=== PATIENT | female | born 1990 | race Two or more races ===

== ENCOUNTER 2025-01-23 16:10 | Emergency (ER) | payer MEDICAID, SELFPAY ==
[2025-01-23 17:17] VITALS: BP 134/87; PULSE 82; RESP 28; TEMP 36.6; O2SAT 100
--- NOTE | 2025-01-23 18:08 | XR_ITS ---
Examination: CT abdomen and pelvis without contrast. Coronal 3-D reconstructions. Sagittal 2-D reconstructions. Date and time of exam:January 23, 2025 1957 hrs. Indications: Onset left flank pain left-sided abdominal pain beginning one week ago. CTDI: vol (mGy): 7.74 DLP: (mGycm): 556 Technique: Axial images of the abdomen have been obtained, 3 mm slice thickness Intravenous contrast material has not been administered. Low dose protocols were performed. One or more of the following dose reduction techniques were used; automated exposure control, adjustment of the mA and/or KV according to patient size, use of iterative reconstruction technique. Findings: No focal liver or splenic lesions. No gallstones. No pancreatic or adrenal mass. 10 mm, 4 mm left renal calculi Mild to moderate left hydronephrosis secondary to 5 x 14 mm left ureteral calculus, proximal No bowel obstruction Normal appendix No diverticulitis No pelvic mass, 12 mm right follicular cyst No bladder calculi Impression: Mild to moderate left hydronephrosis secondary to proximal 5 x 14 mm left ureteral calculus
[2025-01-23] MEDS: ONDANSETRON ODT 4 MG TABRAP PO (18:22)
[2025-01-23] MEDS: KETOROLAC INJ 60 MG/2 ML VIAL 30 MG IM (18:22)
[2025-01-23 18:45] LABS: Basophils # (Auto) 0.0 Thou/mm3 (0.0-0.2); Basophils % (Auto) 0 % (0-2.5); Eosinophils # (Auto) 0.0 Thou/mm3 (0.0-0.5); Eosinophils % (Auto) 0 % (0-10); Hematocrit 34.0 % (36.0-46.0); Hemoglobin 11.4 g/dL (12.0-16.0); Immature Granulocytes Auto 0.05 Thou/mm3 (0.00-0.00); Lymphocytes # (Auto) 0.9 Thou/mm3 (1.0-4.8); Lymphocytes % (Auto) 5 % (10-50); Mean Corpuscular HGB Conc 33.5 g/dl (31.0-37.0); Mean Corpuscular Hemoglobin 27.7 pg (25.0-35.0); Mean Corpuscular Volume 83 fL (80-100); Monocytes # (Auto) 1.0 Thou/mm3 (0.0-0.8); Monocytes % (Auto) 6 % (0-12); Neutrophils # (Auto) 14.2 Thou/mm3 (1.8-7.7); Neutrophils % (Auto) 88 % (37-80); Nucleated Red Blood Cell # 0.00 Thou/mm3 (0.00-0.00); Nucleated Red Blood Cell % 0 /100 WBC (0); Platelet Count 321 Thou/mm3 (140-440); RDW Standard Deviation 44.0 fL (36.4-46.3); Red Blood Count 4.11 Miln/mm3 (4.00-5.20); White Blood Count 16.2 Thou/mm3 (3.6-11.0)
[2025-01-23 19:00] LABS: Alanine Aminotransferase 12 U/L (10-49); Albumin, Serum 4.7 gm/dL (3.5-5.0); Albumin/Globulin Ratio 1.9 (1.2-2.2); Alkaline Phosphatase 68 U/L (46-116); Amylase 54 U/L (30-118); Anion Gap 10 (7-16); Aspartate Amino Transferase 24 U/L (0-34); BUN/Creatinine Ratio 16 Ratio (12-20); Bilirubin,Total 1.1 mg/dL (0.3-1.2); Blood Urea Nitrogen 14 mg/dL (9-23); Calcium 9.6 mg/dL (8.3-10.6); Calcium (Corrected) 9.6 mg/dL (8.5-10.1); Carbon Dioxide 25.0 mMol/L (20.0-31.0); Chloride 102 mMol/L (98-107); Creatinine (Component) 0.9 mg/dL (0.6-1.3); Estimated Creatinine Clearance 99.9 mL/min (>60); Globulin 2.5 gm/dL (2.3-3.5); Glucose 136 mg/dL (74-106); Osmolality,Calculated 276 (275-295); Potassium 4.1 mMol/L (3.4-5.1); Sodium 137 mMol/L (136-145); Total Protein 7.2 gm/dL (5.7-8.2); eGFR > 60 See Note
[2025-01-23 19:30] LABS: Collection Type, Urine Voided
[2025-01-23 19:41] LABS: HCG Qualitative,Urine Negative
--- NOTE | 2025-01-23 19:50 | EDNOTE_ITS ---
ED Abdominal Pain RME/HPI General Chief Complaint: Abdominal Pain Stated complaint: ABD/BACK PAIN Time seen by provider: 01/23/25 17:58 Arrival date/time: 01/23/25 16:10 RME / HPI RME / HPI narrative: 34-year-old healthy female, Last menstrual period about a week ago, presents to the ER complaining of left-sided flank pain with nausea, vomiting, diarrhea which began at about 3 PM today which was the last time that she ate anything. Denies any fever,urinary symptoms, abnormal vaginal discharge, abnormal vaginal bleeding. Related Data Previous Rx's ?Medication ?Instructions ?Recorded ketorolac 10 mg tablet 10 mg PO Q8H PRN pain #7 tab s 01/23/25 ondansetron 4 mg disintegrating 4 mg PO Q6H #12 tabs 0 01/23/25 tablet oxycodone-acetaminophen 10 mg-325 1 tab PO Q6H PRN diann n #8 tabs 01/23/25 mg tablet (Endocet) oxycodone-acetaminophen 5 mg-325 1 tab PO Q6H PRN pain #10 tabs 01/23/25 mg tablet (Percocet) Allergies Allergy/AdvReac Type Severity Reaction Status Date / Time No Known Allergies Allergy Unknown Verified 01/23/25 16:13 ED Exam Narrative Physical exam: Constitutional: Patient alert and oriented. Well appearing. No acute distress. Not toxic appearing. Head: Normocephalic, atraumatic. Eyes: Periorbital regions bilaterally normal to inspection. Conjunctiva clear bilaterally. Sclera anicteric bilaterally. Pupils equal, round, reactive to light bilaterally. Extraocular movements intact bilaterally. Mouth/Throat: Mucous membranes moist. No stridor or muffled voice. No trismus. Handling secretions without difficulty. Airway widely patent. Neck: Supple. Trachea midline. No JVD. No nuchal rigidity. No midline tenderness or step-offs. Normal range of motion. Respiratory: Normal effort. No accessory muscle use or respiratory distress. Lungs clear to auscultation bilaterally without rhonchi, wheezes, or crackles. Cardiovascular: RRR. Normal S1/S2. No murmurs or rubs. Radial pulses intact bilaterally. Abdomen: Soft. Non-distended. Positive left lower quadrant tenderness to palpation. No pulsatile mass. No guarding or rebound. Negative Soria?s sign. Negative McBurney?s point tenderness. Negative Rovsing?s. Back: No midline tenderness or step-offs. Positive left CVA tenderness to pal pation. Upper Extremities: No gross deformities. Lower Extremities: No gross deformities. No edema or calf tenderness. Neuro: Speech normal. No gross motor or sensory deficits to upper or lower ext remities bilaterally. GCS 15. CN II?XII grossly intact. Skin: Warm, dry, normal color. Psych: Normal affect. Cooperative. Normal insight. Course Course Course Narrative: Lab work concerning for mild to moderate leukocytosis with a white count of 16.2, mild anemia with a hemoglobin of 11.4. Urine is visibly contaminated with 9 squamous cells however there is significant pyuria with 35 white blood cells however no nitrites or bacteria. Quality Measures none Orders Category Date Time Status NPO STAT Care 01/23/25 18:[address] abdomen pelvis wo con Stat Exams 01/23/25 18:[address] abdomen pelvis wo con Stat Exams 01/23/25 18:08 Completed Amylase Stat Lab 01/23/25 18:31 Completed CBC Stat Lab 01/23/25 18:31 Completed Comprehensive Metabolic Panel Stat Lab 01/23/25 18:31 Completed HCG Qualitative,Urine Stat Lab 01/23/25 19:00 Completed Urinalysis, C/S if Indicated Stat Lab 01/23/25 19:00 Completed Urine Culture Stat Lab 01/23/25 19:00 Received Ketorolac Inj [Toradol Inj] Med 01/23/25 18:02 Discontinued 30 mg IM X1 ONE Ondansetron Odt [Zofran Odt] Med 01/23/25 18:02 Active 4 mg PO Q1H PRN cefTRIAXone [Rocephin] 1,000 mg Med 01/23/25 22:44 Discontinued Lidocaine 1% 20 ml [Xylocaine 1% 20 ML] 2.1 ml IM X1 oxyCODONE/APAP 5/325 [Percocet 5/325] Med 01/23/25 18:08 Discontinued 2 tab PO X1 ONE Reevaluation(s) Reevaluation #1: Recent plan discussed with and agreed upon with Dr. Hightower who advised pt safe for discharge with close OP f/u, pain and nausea management, and strict ER return precautions. Reevaluation #2: At the time of reassessment, the patient remains alert and oriented ?3 with GCS 15. Vitals are normal, pain is controlled, and the patient is tolerating oral intake without nausea or vomiting. The patient is agreeable to discharge and verbalizes understanding of the diagnosis, studies, treatment plan, medications (including side effects/precautions), and strict ER return precautions as discussed in the ED. All concerns were addressed, and the patient is comfortable with the plan. Vital Signs Vital signs: Vital Signs Temperature 97.9 F 01/23/25 17:17 Pulse Rate 82 01/23/25 17:17 Respiratory Rate 28 H 01/23/25 17:17 Blood Pressure 134/87 H 01/23/25 17:17 Pulse Oximetry (%) 100 01/23/25 17:17 Oxygen Delivery Method Room Air 01/23/25 17:17 Abdominal Pain MDM MDM Narrative MDM Narrative:: 34-year-old female presents to the ER complaining of left-sided flank pain along with nausea vomiting diarrhea x 3 days. Concern for 5 x 1.4 mm proximal left ureteral stone with mild to moderate hydronephrosis. UA concerning for 35 white blood cells however no nitrites or bacteria. White blood cell count mild- moderately elevated at 16.2 with mild anemia with a hemoglobin of an 11.4. BUN and creatinine within normal limits. Perinephritic urine extravasation, pyonephrosis, urosepsis. I offered patient admission however she declined as her pain is well-controlled and she feels comfortable to follow-up with her primary medical doctor tomorrow for an expedited outpatient urology referral case and plan was discussed with and agreed upon with Dr. Keenan who agrees with the plan as outlined. Plan for pain and nausea management as needed, ceftriaxone IM. Strict ER return precautions advised for any concerns at all. Patient data External records reviewed:: None Clinical information provided by:: none Social determinants that could affect healthcare access:: none Patient has the following chronic illnesses:: None How is presenting disease/condition affected by chronic disease/condition?: no chronic disease Evaluation data The following diagnostics were reviewed and interpreted by me:: lab results and radiology exam(s) Lab and/or radiology exams considered but not ordered:: Labs and radiology considered, but not ordered as they were not clinically indicated at this time. Interpretation Summary: as noted Medications / Prescriptions Medications or Prescriptions considered but not ordered:: I considered prescription management (both outpatient prescriptions AND drug treatment in the ER) and decided that this was necessary and was prescribed as charted. Medication administrations:: Medication Administration History Ondansetron HCl (Ondansetron Odt 4 Mg Tabrap) 4 mg PO Q1H PRN PRN Reason: PERSISTENT NAUSEA OR VOMITING Stop: 01/24/25 18:01 Last Admin: 01/23/25 18:22 Dose: 4 mg Documented By: OA Discontinued Medications Ceftriaxone Sodium 1,000 mg/ (Lidocaine HCl 2.1 ml) 0 mg IM X1 ONE Stop: 01/23/25 22:45 Last Admin: 01/23/25 23:07 Dose: 2.1 mg Documented By: OA Ketorolac Tromethamine (Ketorolac Inj 60 Mg/2 Ml Vial) 30 mg IM X1 ONE Stop: 01/23/25 18:03 Last Admin: 01/23/25 18:22 Dose: 30 mg Documented By: OA Oxycodone/Acetaminophen (Oxycodone/Apap 5/325 Tablet) 2 tab PO X1 ONE Stop: 01/23/25 18:09 Last Admin: 01/23/25 20:09 Dose: Not Given Documented By: OA Non-Admin Reason: Patient Refused as noted Consultations Consultation(s) initiated? (list below): No Diagnosis Differential diagnosis abdominal pain: calculus of kidney and other Most likely diagnosis given after review of the tests above:: Kidney stone Admission Indicated Admission indicated?: not indicated Explain why admission is indicated or not indicated:: Escalation of care including admission/observation considered and offered, but I decided to discharge because based on shared decision making as this was her choice, the overall clinical presentation, and after consideration of the patient's course in the emergency department and plan for outpatient management, I believe that neither further observation nor inpatient care is required at this time. Admission Request Was there a request for admission?: No Disposition Plan Disposition Plan: Discharge Discharge Attestation Discharge Attestation: The patient and all family members were given an opportunity to ask questions and understood the discharge instructions. Discharge instructions specifically effects, indications for sooner follow up or return to the emergency department, and the expected course of current diagnosis. Patient condition: Stable Discharge Plan Plan Patient Disposition: HOME (Self Care) Discharge Disposition comment: Follow up with your primary medical doctor and a urologist within 24 hours. Return to the Emergency Room immediately for any new, worsening, continuing symptoms or any concerns at all. Return to the Emergency Room within 24 hours if you are unable to follow up with your primary medical doctor and a urologist within 24 hours. You have a kidney stone that will require a urologic operation for removal. Patient condition on transfer: Stable Prescriptions/Referrals Prescriptions/Med Rec: New ketorolac 10 mg tablet 10 mg PO Q8H PRN (Reason: pain) Qty: 7 0RF Rx Instructions: maximum total duration of 5 days from all oral, intranasal, or parenteral formulations ondansetron 4 mg tablet,disintegrating 4 mg PO Q6H Qty: 12 0RF oxycodone-acetaminophen [Endocet] 10-325 mg tablet 1 tab PO Q6H MDD 40mg oxycodone PRN (Reason: pain) Qty: 8 0RF oxycodone-acetaminophen [Percocet] 5-325 mg tablet 1 tab PO Q6H MDD MAX 4 TABS PER DAY PRN (Reason: pain) Qty: 10 0RF Referrals: No Primary/Family,Physician [Primary Care Provider] - In 1 week Problem List Clinical Impression: Kidney calculus Patient/Caregiver Discharge Instructions Print Language: Swazi Stand Alone Forms: Preeti Award Info., Patient Portal Info Letter PA/COMBINATION MACHINE TOOL OPERATOR Supervising Physician PA/COMBINATION MACHINE TOOL OPERATOR Supervising Physician: Dr. Hightower
[2025-01-23 20:18] LABS: Amorphous Crystals,Urine Present (Absent); Bilirubin,Urine Negative (Negative); Blood,Urine Negative (Negative); Clarity,Urine Turbid (Clear/Hazy); Color,Urine Lt-Yellow (Lt Yel-Yel); Glucose, Urine Negative (Negative); Ketones,Urine 3+ (Negative); Leukocyte Esterase,Urine Positive (Negative); Nitrite,Urine Negative (Negative); PH,Urine 8.0 (5.0-7.0); Protein,Urine Trace (Neg - Trace); RBC,Urine < 1 /hpf (0-3); Specific Gravity,Urine 1.027 (1.001-1.035); Squamous Epithelial Cell,Urine 9 /hpf (0-5); Urobilinogen,Urine Negative mg/dL (0.0-1.0); WBC,Urine 35 /hpf (0-5)
[2025-01-23 20:24] LABS: Culture Indicated,Urine Yes
[2025-01-23] MEDS: cefTRIAXone 1,000 MG, LIDOCAINE 1% 20 ML 2.1 ML IM (23:07)
== END 2025-01-23 23:32 | disposition home or self-care (01) ==
PROVIDERS: Physician Assistant; Emergency Provider Emergency Medicine
DX: N20.0 Calculus of kidney (principal)
CPT/HCPCS: 36415; 74176; 80053; 81001; 81025; 82150; 85025; 87086; 96372; 99284; J0696; J1885; J3490; Q0162